=== PATIENT | male | born 1965 | race African-American/Black ===

== ENCOUNTER 2016-10-21 11:59 | Emergency (ER) | payer OTHER ==
[~2016-10-21] VITALS: Wt 100.0 kg
[~2016-10-21 11:59] MED LIST: AZIT250T94 PO; PROM6.25 PO; QUET100T PO
--- NOTE | 2016-10-21 13:39 | ERD ---
ER Documentation Chief Complaint Date/Time DATE: 10/21/16 TIME: 13:36 Chief Complaint left wrist pain from doing pushups for onset 6 wks. no deformity HPI This is a 51-year-old male who presents to the emergency department today complaining of left wrist pain for the past 6 weeks. Patient states he was doing push-ups on the push-up bar when his hand slipped and he fell awkwardly on his wrist. States this happened approximately 6 weeks ago. He has not taken any medication for the pain. States he has used an Mario wrap. States he uses medical marijuana for paranoia schizophrenia. Denies any fevers or chills per ROS All systems reviewed and are negative except as per history of present illness. Medications Home Meds Active Scripts Acetaminophen* (Tylophen*) 500 Mg Capsule, 1 CAP PO Q6H Y for PAIN AND OR ELEVATED TEMP, #30 CAP Prov:NATE ADAM PA-C 10/21/16 Ibuprofen* (Motrin*) 600 Mg Tab, 600 MG PO Q6, #30 TAB Prov:NATE ADAM PA-C 10/21/16 Promethazine w/Codeine* (Phenergan w/Codeine* Syrup) 5 Ml Syrup, 5 ML PO Q4H Y for COUGH for 7 Days, ML Prov:ALEX FERNÁNDEZ PA-C 10/16/15 Azithromycin* (Zithromax*) 250 Mg Tablet, 250 MG PO DAILY for 5 Days, TAB zpak as directed Prov:ALEX FERNÁNDEZ PA-C 10/16/15 Reported Medications Quetiapine Fumarate* (Seroquel*) 100 Mg Tablet, 100 MG PO DAILY, TAB 07/03/14 Allergies Allergies: Coded Allergies: No Known Allergy (Unverified , 06/17/16) PMhx/Soc History of Surgery: No Anesthesia Reaction: No Hx Neurological Disorder: No Hx Respiratory Disorders: No Hx Cardiac Disorders: Yes (high cholesterol) Hx Psychiatric Problems: No Hx Miscellaneous Medical Probl: No Hx Alcohol Use: Yes (socially) Hx Substance Use: No Hx Tobacco Use: No Physical Exam Vitals Vital Signs Date Time Temp Pulse Resp B/P Pulse Ox O2 Delivery O2 Flow Rate FiO2 10/21/16 12:02 98.0 73 20 109/68 98 Physical Exam Const: No acute distress Head: Atraumatic Eyes: Normal Conjunctiva ENT: Normal External Ears, Nose and Mouth. Neck: Full range of motion..~ No meningismus. Resp: Clear to auscultation bilaterally Cardio: Regular rate and rhythm, no murmurs Abd: Soft, non tender, non distended. Normal bowel sounds Skin: No petechiae or rashes MSK: Left wrist with no obvious deformity. No effusion. No ecchymosis. Pain with wrist extension. Tenderness to palpation over lunate. Nontender scaphoid. Pulses 2+. Distal neurovascularly intact. Neur: Awake and alert Psych: Normal Mood and Affect Results 24 hrs DIAGNOSTIC IMAGING REPORT Patient: GREGORIO GALE : 1965 Age: 51 Sex: M MR #: [id number] DOS: 10/21/16 0000 Ordering MD: NATE ADAM PA-C Location: [facility] Room/Bed: PROCEDURE: XR left wrist. CLINICAL INDICATION: Wrist pain TECHNIQUE: 4 views are available for review. COMPARISON: No prior studies are available for comparison. FINDINGS: The osseous structures are normal in mineralization, architecture and alignment. No fracture or osseous lesion is identified. The joints are unremarkable. The soft tissues are unremarkable. IMPRESSION: Unremarkable examination. RPTAT: HGDB .Martinez Kennedy MD, MD Date Time Electronically viewed and signed by .Martinez Kennedy MD, MD on 10/21/2016 14:21 .B/ CC: NATE ADAM PA-C Procedures/[facility] This a right-handed 51-year-old male who presents to the emergency department today complaining of left wrist pain for the past 6 weeks. Patient had tenderness on his lunate bone and he did have some trauma 6 weeks ago and therefore did obtain images. Per the radiology report images of the left wrist are unremarkable. There is no acute fracture or dislocation. Joints are unremarkable. Soft tissue is unremarkable. Low suspicion for scaphoid fracture as patient has no tenderness over his scaphoid. No evidence of scapholunate lunate dislocation. Patient symptoms at this time was consistent with sprain versus strain. Patient will be given a prescription for Tylenol and Motrin. He was also given a Velcro wrist splint At this time the patient is stable for discharge and outpatient management. Patient should follow up with their PCP in the next 1-2 days. They may return to the emergency department sooner for any persistent or worsening of symptoms. Patient understood and agreed with the plan. Departure Diagnosis: Primary Impression: Wrist injury Encounter type: initial encounter Laterality: left Qualified Code: S69.92XA - Wrist injury, left, initial encounter Condition: Fair NATE ADAM PA-C Oct 21, 2016 13:39
--- NOTE | 2016-10-21 14:21 | RADRPT ---
PROCEDURE: XR left wrist. CLINICAL INDICATION: Wrist pain TECHNIQUE: 4 views are available for review. COMPARISON: No prior studies are available for comparison. FINDINGS: The osseous structures are normal in mineralization, architecture and alignment. No fracture or oss eous lesion is identified. The joints are unremarkable. The soft tissues are unremarkable. IMPRESSION: Unremarkable examination. RPTAT: HGDB .Martinez Kennedy MD, Date Time Electronically viewed and signed by .Martinez Kennedy MD, on 10/21/2016 14:21 .B/
[2016-10-21] MEDS ORDERED: IBUP-1542 PO (14:31)
[2016-10-21] MEDS ORDERED: ACET500C5 PO (14:32)
== END 2016-10-21 15:05 | disposition home or self-care (01) ==
LOC: FTE 11:59
DX: S69.92XA Unspecified injury of left wrist, hand and finger(s), initial encounter (principal); W22.8XXA Striking against or struck by other objects, initial encounter; Y92.9 Unspecified place or not applicable
CPT/HCPCS: 29125; 73110; Z7502

== ENCOUNTER 2017-04-08 09:52 | Emergency (ER) | payer OTHER ==
[~2017-04-08] VITALS: Ht 182.9 cm; Wt 94.0 kg
[~2017-04-08 09:52] MED LIST changes: +ACET500C5 PO; +IBUP-1542 PO
[2017-04-08 09:54] VITALS: Ht 182.9 cm; Wt 94.0 kg
[2017-04-08] MEDS ORDERED: DEXAMETHASONE 10 MG/ML 1 ML INJ IM ONE (10:30)
--- NOTE | 2017-04-08 10:38 | ERD ---
ER Documentation Chief Complaint Date/Time DATE: 04/08/17 TIME: 10:29 Chief Complaint rash x 3 days *thinks its scabies* left wrist pain HPI 51-year-old otherwise healthy male presents the emergency department for complaints of an itchy rash on his back 3 days. Patient states he recently stayed with friends who reported bedbugs in her house. Patient also states that while attempting to clean his clothes and furniture after being exposed, and he slipped and fell landing on his left arm and wrist. Patient states that since that time he is experienced a dull 5 out of 10 lateral wrist pain which is worse with movement. He denies any numbness, tingling, swelling, bruising. ROS All systems reviewed and are negative except as per history of present illness. Medications Home Meds Active Scripts Naproxen* (Naprosyn*) 500 Mg Tablet, 500 MG PO BID Y for PAIN AND/OR INFLAMMATION, #30 TAB Prov:TORITO CHARLES PA-C 04/08/17 Hydrocodone/Acetaminophen ([place] 5-325 Tablet) 1 Each Tablet, 1 TAB PO Q6H Y for PAIN, #7 TAB Prov:TORITO CHARLES PA-C 04/08/17 Triamcinolone Acetonide (Triamcinolone Acetonide) 0.1% - 15 Gm Cream.gm., 1 APPLIC TOP BID, #1 TUB Prov:TORITO CHARLES PA-C 04/08/17 Permethrin* (Elimite*) 5% Cr, 1 APPLIC TOP ONCE for 2 Days, TUB Prov:TORITO CHARLES PA-C 04/08/17 Acetaminophen* (Tylophen*) 500 Mg Capsule, 1 CAP PO Q6H Y for PAIN AND OR ELEVATED TEMP, #30 CAP Prov:NATE ADAM PA-C 10/21/16 Ibuprofen* (Motrin*) 600 Mg Tab, 600 MG PO Q6, #30 TAB Prov:NATE ADAM PA-C 10/21/16 Promethazine w/Codeine* (Phenergan w/Codeine* Syrup) 5 Ml Syrup, 5 ML PO Q4H Y for COUGH for 7 Days, ML Prov:ALEX FERNÁNDEZ PA-C 10/16/15 Azithromycin* (Zithromax*) 250 Mg Tablet, 250 MG PO DAILY for 5 Days, TAB zpak as directed Prov:ALEX FERNÁNDEZ PA-C 10/16/15 Reported Medications Quetiapine Fumarate* (Seroquel*) 100 Mg Tablet, 100 MG PO DAILY, TAB 07/03/14 Allergies Allergies: Coded Allergies: No Known Allergy (Unverified , 04/08/17) PMhx/Soc History of Surgery: No Anesthesia Reaction: No Hx Neurological Disorder: No Hx Respiratory Disorders: No Hx Cardiac Disorders: Yes (high cholesterol) Hx Psychiatric Problems: No Hx Miscellaneous Medical Probl: No Hx Alcohol Use: Yes (socially) Hx Substance Use: No Hx Tobacco Use: No Physical Exam Vitals Vital Signs Date Time Temp Pulse Resp B/P Pulse Ox O2 Delivery O2 Flow Rate FiO2 04/08/17 09:54 98.2 81 18 118/70 98 Physical Exam Const: Well-developed, well-nourished, no acute distress Head: Atraumatic Eyes: Normal Conjunctiva ENT: Normal External Ears, Nose and Mouth. No swelling of the lips, tongue, posterior pharynx without swelling or erythema. Neck: Full range of motion..~ No meningismus. Resp: Clear to auscultation bilaterally Cardio: Regular rate and rhythm, no murmurs Abd: Soft, non tender, non distended. Normal bowel sounds Skin: Small, erythematous lesions in a linear distribution along upper back and posterior neck region with overlying excoriation from scratching. Back: No midline or flank tenderness Ext: Left upper extremity: No swelling, ecchymosis, surface trauma, or deformity of the left wrist or hand. Patient with full range of motion at wrist , elbow, and hand. Good strength against resistance for the wrist however patient reports pain along the lateral aspect of the wrist. Mild tenderness to palpation over the ulnar region of the lateral wrist. No scaphoid tenderness to palpation. Radial, median, ulnar motor function intact. 2 point discrimination intact along the radial and ulnar aspects of all 5 fingers of the left upper extremity. Brisk capillary refill. Radial pulse 2+. Neur: Awake and alert Psych: Normal Mood and Affect Results 24 hrs Current Medications Medications (Trade) Dose Ordered Sig/Anna Route PRN Reason Start Time Stop Time Status Last Admin Dose Admin Dexamethasone (Decadron) 10 mg ONCE ONCE IM 04/08/17 10:30 04/08/17 10:31 DC 04/08/17 10:46 Procedures/MDM PROCEDURE: XR Left Wrist CLINICAL INDICATION: Pain, fall TECHNIQUE: PA, lateral, and oblique views were submitted. COMPARISON: 10/21/2016 FINDINGS: Osseous structures: appear well mineralized and intact with no fracture or destructive process identified. Joint spaces: are well maintained with no significant erosions or spurring identified. Soft tissues: appear unremarkable. IMPRESSION: Stable and unremarkable left wrist. Physician Les Date Time Electronically viewed and signed by Physician Les on 04/08/2017 11:14 RH/ CC: TORITO CHARLES PA-C 51-year-old otherwise healthy male presents the emergency department stating that he was recently exposed to bedbugs while at a friend's house and has since experienced an itchy rash to the upper back and neck region 3 days. Patient states he then began washing and cleaning his clothes and furniture to read them of possible bedbugs and slipped and fell landing on his left hand and wrist. Since that time he notes mild intermittent pain associated with movement. Physical exam without evidence of major surface trauma, deformity, decreased range of motion, decreased neurovascular function, weakness, or scaphoid tenderness. Patient did no slight tenderness to palpation of the ulnar aspect of his left wrist as well as pain against resistance while testing wrist strength. Skin exam with evidence of small erythematous lesions in the linear distribution along the upper back and neck region consistent with bug bites. X-ray Wrist 3V Interpreted by me: Scaphoid: Normal Bones: No fracture Joints: No dislocation Foreign body: None Patient placed in a prefabricated wrist splint and provided with pain medication. Patient instructed to follow-up with primary care provider for referral to physical therapy or product delivery specialist if the wrist pain persists. Resources provided. Patient will receive permethrin topical cream as well as steroids for symptomatic rash relief. Based on patient's history of present illness and physical examination the decision was made to discharge. The patient was re-evaluated after ED treatment and stabilizing measures, and symptoms have improved. There is no evidence of life threatening injuries or illnesses at this time. On re-examination, patient resting in no distress, stable vital signs, reports feeling better and safe for discharge with outpatient follow up with PMD in 1-2 days. Patient given return precautions. Departure Diagnosis: Primary Impression: Rash Additional Impression: Wrist pain Laterality: left Qualified Code: M25.532 - Left wrist pain TORITO CHARLES PA-C Apr 08, 2017 10:38
[2017-04-08] MEDS ORDERED: NAPR-260 PO (10:39)
[2017-04-08] MEDS ORDERED: ELIM TOP (10:39)
[2017-04-08] MEDS ORDERED: TRIA15CR55 TOP (10:39)
[2017-04-08] MEDS ORDERED: HYDR-906 PO (10:39)
--- NOTE | 2017-04-08 11:15 | RADRPT ---
PROCEDURE: XR Left Wrist CLINICAL INDICATION: Pain, fall TECHNIQUE: PA, lateral, and oblique views were submitted. COMPARISON: 10/21/2016 FINDINGS: Osseous structures: appear well mineralized and intact with no fracture or destructive process iden tified. Joint spaces: are well maintained with no significant erosions or spurring identified. Soft tissues: appear unremarkable. IMPRESSION: Stable and unremarkable left wrist. Physician Les Date Time Electronically viewed and signed by Myrna Nixon Physician on 04/08/2017 11:14 /
== END 2017-04-08 11:33 | disposition home or self-care (01) ==
LOC: FTE 09:52
DX: R21 Rash and other nonspecific skin eruption (principal); M25.532 Pain in left wrist
CPT/HCPCS: 73100; 96372; J1100; Z7502

== ENCOUNTER 2018-03-12 10:04 | Emergency (ER) | END 2018-03-12 11:13 | disposition home or self-care (01) ==